=== PATIENT | male | born 1975 | race African-American/Black ===

== ENCOUNTER 2023-12-29 07:44 | Emergency (ER) | payer OTHER ==
[~2023-12-29] VITALS: Ht 170.2 cm; Wt 91.0 kg
[2023-12-29 08:04] VITALS: O2SAT 95
[2023-12-29] MEDS ORDERED: TOPUD PO (09:23)
[2023-12-29] MEDS: ACETAMINOPHEN 325MG TABLET PO ONE (09:27)
[2023-12-29 10:20] VITALS: BP 140/71; PULSE 78; RESP 18; TEMP 98
== END 2023-12-29 11:17 | disposition home or self-care (01) ==
LOC: ER 07:44
DX: M25.511 Pain in right shoulder (principal); E11.9 Type 2 diabetes mellitus without complications; I10 Essential (primary) hypertension; R51.9 Headache, unspecified; Z88.0 Allergy status to penicillin; W01.0XXA Fall on same level from slipping, tripping and stumbling without subsequent striking against object, initial encounter; Y93.89 Activity, other specified; Y92.89 Other specified places as the place of occurrence of the external cause; Y99.8 Other external cause status
CPT/HCPCS: 73030; 99284

== ENCOUNTER 2024-01-28 05:54 | Emergency (ER) | payer OTHER ==
[~2024-01-28] VITALS: Ht 172.7 cm; Wt 92.0 kg
[~2024-01-28 05:54] MED LIST: TOPUD PO
[2024-01-28 05:58] VITALS: O2SAT 98
[2024-01-28] MEDS ORDERED: IBUPROFEN 800MG TABLET PO ONE (06:45)
[2024-01-28] MEDS: IBUPROFEN 800MG TABLET PO NR (08:17)
[2024-01-28] MEDS ORDERED: MELO-104 MT (10:03)
[2024-01-28] MEDS ORDERED: PANT20TA17 MT (10:03)
[2024-01-28] MEDS ORDERED: HYDR50TA MT (10:03)
[2024-01-28] MEDS ORDERED: METF-414 MT (10:03)
[2024-01-28 10:24] VITALS: BP 145/95; PULSE 92; RESP 16; TEMP 98.8
== END 2024-01-28 10:25 | disposition home or self-care (01) ==
LOC: ER 05:54
DX: S80.01XA Contusion of right knee, initial encounter (principal); E11.9 Type 2 diabetes mellitus without complications; I10 Essential (primary) hypertension; Z88.0 Allergy status to penicillin; Z91.148 Patient's other noncompliance with medication regimen for other reason; X58.XXXA Exposure to other specified factors, initial encounter; Y93.89 Activity, other specified; Y92.39 Other specified sports and athletic area as the place of occurrence of the external cause; Y99.8 Other external cause status
CPT/HCPCS: 99283

== ENCOUNTER 2024-02-29 07:23 | Emergency (ER) | payer OTHER ==
[~2024-02-29] VITALS: Ht 177.8 cm; Wt 100.0 kg
[~2024-02-29 07:23] MED LIST changes: +HYDR50TA MT; +MELO-104 MT; +METF-414 MT; +PANT20TA17 MT
[2024-02-29 07:26] VITALS: TEMP 97.9; O2SAT 96
[2024-02-29 08:50] LABS: BASOPHILS % 1.1 % (0.0-2.0); HEMATOCRIT. 42.1 % (42.0-52.0); HEMOGLOBIN. 14.7 g/dL (14.0-18.0); LYMPHOCYTES % 29.6 % (20.0-50.0); MEAN CORPUSCULAR HEMOGLOBIN 31.3 pg (28.0-32.0); MEAN CORPUSCULAR HGB CONC 34.9 g/dL (31.0-37.0); MEAN CORPUSCULAR VOLUME 89.5 fL (80.0-94.0); MONOCYTES % 7.2 % (2.0-8.0); NEUTROPHILS % 59.1 % (40.0-76.0); PLATELET 378 x1000/uL (130-400); RED CELL DISTRIBUTION WIDTH 13.5 % (11.6-14.6); WHITE BLOOD COUNT 10.1 x1000/uL (4.5-11.0)
[2024-02-29 09:00] LABS: CHLORIDE 102 mEq/L (98-107); POTASSIUM 3.9 mEq/L (3.5-5.1); SODIUM 134 mEq/L (136-145)
[2024-02-29 09:01] LABS: CALCIUM 9.8 mg/dL (8.7-10.4); CARBON DIOXIDE 28 mEq/L (21-32)
[2024-02-29 09:06] LABS: CREATININE 1.1 mg/dL (0.6-1.3); GLUCOSE 125 mg/dL (70-105); UREA NITROGEN BLOOD 16 mg/dL (9-23)
[2024-02-29 10:08] LABS: TROPONIN I HIGH SENSITIVITY < 4 ng/L (3.0-53)
[2024-02-29 12:45] VITALS: BP 134/94; PULSE 100; RESP 18
== END 2024-02-29 14:29 | disposition home or self-care (01) ==
LOC: ER 07:49
DX: R07.9 Chest pain, unspecified (principal); F12.90 Cannabis use, unspecified, uncomplicated; F15.90 Other stimulant use, unspecified, uncomplicated; I10 Essential (primary) hypertension; E11.9 Type 2 diabetes mellitus without complications; Z88.0 Allergy status to penicillin; F17.210 Nicotine dependence, cigarettes, uncomplicated
CPT/HCPCS: 80048; 83880; 85025; 85379; 84484; 36415; 71045; 93005; 99285; 99406; Z7610

== ENCOUNTER 2024-03-05 03:41 | Emergency (ER) | payer OTHER ==
[~2024-03-05] VITALS: Ht 170.2 cm; Wt 95.0 kg
[2024-03-05 03:45] VITALS: BP 151/106; PULSE 82; RESP 18; TEMP 97.7; O2SAT 98
[2024-03-05] MEDS ORDERED: KETOROLAC 30MG/ML VIAL IM ONE (04:00)
[2024-03-05] MEDS ORDERED: TOPUD MT (05:30)
[2024-03-05] MEDS ORDERED: IBUP-2028 MT (05:30)
== END 2024-03-05 06:45 | disposition home or self-care (01) ==
LOC: ER 03:41
DX: S80.01XA Contusion of right knee, initial encounter (principal); E11.9 Type 2 diabetes mellitus without complications; I10 Essential (primary) hypertension; F12.90 Cannabis use, unspecified, uncomplicated; F15.90 Other stimulant use, unspecified, uncomplicated; Z88.0 Allergy status to penicillin; W18.39XA Other fall on same level, initial encounter; Y93.89 Activity, other specified; Y92.89 Other specified places as the place of occurrence of the external cause; Y99.8 Other external cause status
CPT/HCPCS: 99283; 73562; J1885